=== PATIENT | male | born 1990 | race Caucasian/White ===

== ENCOUNTER 2021-03-17 12:41 | Inpatient (IN) | payer OTHER ==
[~2021-03-17 12:41] MED LIST: BACTRIM DS TAB1 EACH PO; KEFLEX250 MG PO; LIPITOR20 MG PO; NEURONTIN300 MG PO; PRINIVIL10 MG PO; PROZAC20 MG PO
[2021-03-17 13:40] LABS: BASOPHIL 0.9 % (0-2); EOSINOPHIL 0.8 % (0-5); HCT 47.6 % (42.0-52.0); HGB 16.3 g/dl (13.2-18.0); LYMPHOCYTE 15.6 % (15-48); MCH 30.7 pg (25.0-31.0); MCHC 34.2 g/dL (32.0-36.0); MCV 89.6 fL (78.0-100.0); MONOCYTE 3.7 % (0-12); NEUTROPHIL 78.5 % (41-80); NRBC 0; PLT 288 K/uL (150-400); RBC 5.31 M/uL (4.70-6.00); RDW 11.9 % (11.5-14.0); WBC 8.6 K/uL (4.0-10.5)
[2021-03-17 14:05] LABS: BILIRUBIN NEGATIVE (NEGATIVE); BLOOD NEGATIVE Ery/uL (NEGATIVE); CLARITY CLEAR (CLEAR); COLOR YELLOW (YELLOW); GLUCOSE (U) 3+ mg/dL (NORMAL); LEUKOCYTES NEGATIVE Leu/uL (NEGATIVE); NITRITE NEGATIVE (NEGATIVE); PROTEIN NEGATIVE (NEGATIVE); SPECIFIC GRAVITY 1.015 (1.001-1.030); UROBILINOGEN 0.2 mg/dL (0.2-1.0); pH 5.5 (5.0-9.0)
[2021-03-17 14:31] LABS: LACTIC ACID 2.6 mmol/L (0.4-1.9)
[2021-03-17 14:45] LABS: ALBUMIN 3.6 g/dL (3.4-5.0); BILIRUBIN - TOTAL 1.1 mg/dL (0.2-1.0); BUN/CREAT RATIO (CALC) 36.6 RATIO; CREATININE 1.23 mg/dL (0.67-1.17); GLOBULIN (CALCULATION) 3.3 g/dL; POTASSIUM 5.8 mmol/L (3.5-5.1); TOTAL PROTEIN 6.9 g/dL (6.4-8.2)
[2021-03-17 16:18] LABS: ECSTASY (MDMA) NEGATIVE (NEGATIVE); MARIJUANA (THC) NEGATIVE (NEGATIVE)
[2021-03-17 16:19] LABS: AMPHETAMINES NEGATIVE (NEGATIVE); BARBITURATES NEGATIVE (NEGATIVE); METHADONE NEGATIVE (NEGATIVE); OPIATES NEGATIVE (NEGATIVE); OXYCODONE NEGATIVE (NEGATIVE)
[2021-03-17] MEDS ORDERED: ADMELOG100 UNIT/1 SC (17:14)
[2021-03-17 18:33] LABS: CREATININE 1.37 mg/dL (0.67-1.17); POTASSIUM 4.7 mmol/L (3.5-5.1)
[2021-03-17 22:44] LABS: BUN/CREAT RATIO (CALC) 38.5 RATIO; CREATININE 1.3 mg/dL (0.67-1.17); POTASSIUM 4.3 mmol/L (3.5-5.1)
[2021-03-18 02:28] LABS: BUN/CREAT RATIO (CALC) 41.1 RATIO; CREATININE 1.07 mg/dL (0.67-1.17); POTASSIUM 3.8 mmol/L (3.5-5.1)
[2021-03-18 06:06] LABS: BASOPHIL 0.5 % (0-2); HCT 37.6 % (42.0-52.0); HGB 13.5 g/dl (13.2-18.0); LYMPHOCYTE 24.9 % (15-48); MCH 31.2 pg (25.0-31.0); MCHC 35.9 g/dL (32.0-36.0); MCV 86.8 fL (78.0-100.0); MONOCYTE 7.2 % (0-12); MPV 9.4 fL (6.0-9.5); NEUTROPHIL 65.2 % (41-80); NRBC 0; PLT 238 K/uL (150-400); RBC 4.33 M/uL (4.70-6.00); RDW 11.9 % (11.5-14.0)
[2021-03-18 06:24] LABS: BUN/CREAT RATIO (CALC) 38.5 RATIO; CREATININE 1.09 mg/dL (0.67-1.17); POTASSIUM 4.1 mmol/L (3.5-5.1)
[2021-03-18 14:17] LABS: BUN/CREAT RATIO (CALC) 32.1 RATIO; CREATININE 1.06 mg/dL (0.67-1.17); POTASSIUM 4.6 mmol/L (3.5-5.1)
[2021-03-18 18:28] LABS: POTASSIUM 3.9 mmol/L (3.5-5.1)
[2021-03-19 06:01] LABS: CREATININE 0.74 mg/dL (0.67-1.17); POTASSIUM 3.7 mmol/L (3.5-5.1)
[2021-03-19] MEDS ORDERED: LANTUS SOL100 UNIT/1 SC (08:17)
[2021-03-19] MEDS ORDERED: ADMELOG100 UNIT/1 SC (08:17)
[2021-03-19] MEDS ORDERED: NOVOLIN R100 UNIT/3 SC (09:12)
--- NOTE | 2021-03-19 09:47 | NUR ---
PT DISCHARGE ORDER BY DR. CASE, PT OFF IV FLUIDS AND EATING AND DRINKING WELL. LANTUS 2O UNITS HELD THIS AM PER DR. CASE. BLOOD GLUCOSE AT 8 = 66. RECHECK POST BREAKFAST = 211 PIV X2 REMOVED AND DRESSED WITH GAUZE AND TAPE. PT EDUCATED ON NEW INSULIN ADMINISTRATION ORDERS, QUESTIONS ANSWERED, AND PRESCRIPTIONS GIVEN. PT ASKED FOR 1 MONTH SUPPLY OF GABAPENTIN FOR WHEN HE IS RELEASED FROM LONG-TERM, DR. CASE NOTIFIED OF REQUEST BY PT BUT UNABLE TO FILL. PT NOTIFIED AND UNDERSTANDING. PT DISCHARGED VIA WHEELCHAIR BY NIGEL ELLIS.
== END 2021-03-19 10:02 | disposition home or self-care (01) | DRG 638 ==
LOC: FER 12:41 → FICU 15:25 → FMS 03-18 10:29
PROVIDERS: Allergy & Immunology Allergy; Emergency Medicine; Nurse Practitioner Family; ADMIT Internal Medicine
DX: E10.10 Type 1 diabetes mellitus with ketoacidosis without coma (principal); N17.9 Acute kidney failure, unspecified; E87.1 Hypo-osmolality and hyponatremia; Z79.4 Long term (current) use of insulin; Z96.41 Presence of insulin pump (external) (internal); E87.5 Hyperkalemia; E10.40 Type 1 diabetes mellitus with diabetic neuropathy, unspecified; F32.9 Major depressive disorder, single episode, unspecified; E78.5 Hyperlipidemia, unspecified; Z79.899 Other long term (current) drug therapy; Z82.49 Family history of ischemic heart disease and other diseases of the circulatory system; F17.200 Nicotine dependence, unspecified, uncomplicated; R11.2 Nausea with vomiting, unspecified; Z20.822 Contact with and (suspected) exposure to COVID-19
CPT/HCPCS: 36415; 36600; 80048; 80053; 80305; 81003; 82009; 82803; 82962; 83036; 83605; 83690; 83735; 84484; 85025; 93005; C9113; J0610; J1650; J2405; J7030; J7120; J7121; U0002

== ENCOUNTER 2021-08-22 15:28 | Emergency (ER) | payer OTHER ==
[~2021-08-22 15:28] MED LIST changes: +ADMELOG100 UNIT/1 SC; +LANTUS SOL100 UNIT/1 SC; +NOVOLIN R100 UNIT/3 SC
[2021-08-22] MEDS ORDERED: KEFLEX250 MG PO (19:09)
== END 2021-08-22 20:25 | disposition home or self-care (01) ==
LOC: FER 15:28
DX: S62.307A Unspecified fracture of fifth metacarpal bone, left hand, initial encounter for closed fracture (principal); S61.412A Laceration without foreign body of left hand, initial encounter; I10 Essential (primary) hypertension; E10.9 Type 1 diabetes mellitus without complications; Z23 Encounter for immunization; W31.2XXA Contact with powered woodworking and forming machines, initial encounter; Y92.89 Other specified places as the place of occurrence of the external cause; Y99.0 Civilian activity done for income or pay
CPT/HCPCS: 73130; 90715

== ENCOUNTER 2021-08-30 11:22 | Emergency (ER) | payer OTHER ==
[2021-08-30] MEDS ORDERED: VIBRAMYCIN100 MG PO (11:52)
== END 2021-08-30 14:16 | disposition home or self-care (01) ==
LOC: FER 11:22
DX: S61.411D Laceration without foreign body of right hand, subsequent encounter (principal); L03.113 Cellulitis of right upper limb; E10.9 Type 1 diabetes mellitus without complications; W31.2XXD Contact with powered woodworking and forming machines, subsequent encounter
CPT/HCPCS: 99283

== ENCOUNTER 2022-04-26 12:30 | Emergency (ER) | payer OTHER ==
[~2022-04-26 12:30] MED LIST changes: +INSULIN SYRING SC; +VIBRAMYCIN100 MG PO
[2022-04-26 12:55] LABS: BASOPHIL 0.8 % (0-2); EOSINOPHIL 2.2 % (0-5); HCT 43.5 % (42.0-52.0); LYMPHOCYTE 29.5 % (15-48); MCH 30.5 pg (25.0-31.0); MCHC 34.5 g/dL (32.0-36.0); MCV 88.6 fL (78.0-100.0); MONOCYTE 10.3 % (0-12); MPV 10.1 fL (6.0-9.5); NEUTROPHIL 56.9 % (41-80); NRBC 0; PLT 287 K/uL (150-400); RBC 4.91 M/uL (4.70-6.00); RDW 11.8 % (11.5-14.0); WBC 6.5 K/uL (4.0-10.5)
[2022-04-26 13:10] LABS: BUN/CREAT RATIO (CALC) 11.6 RATIO; CREATININE 0.95 mg/dL (0.67-1.17); POTASSIUM 3.5 mmol/L (3.5-5.1)
== END 2022-04-26 14:56 | disposition home or self-care (01) ==
LOC: FER 12:30
PROVIDERS: Nurse Practitioner Family
DX: E10.649 Type 1 diabetes mellitus with hypoglycemia without coma (principal)
CPT/HCPCS: 36415; 80048; 85025; 99283